=== PATIENT | female | born 1950 | race Hispanic/Latino ===

== ENCOUNTER 2019-07-13 13:43 | Emergency (ER) | payer SELFPAY ==
--- NOTE | 2019-07-13 13:54 | Emergency Department Report ---
Blank Doc - Documentation Documentation: 68-year-old female that presents with abdominal pain with n/v. This initial assessment/diagnostic orders/clinical plan/treatment(s) is/are subject to change based on patient's health status, clinical progression and re- assessment by fellow clinical providers in the ED. Further treatment and workup at subsequent clinical providers discretion. Patient/guardians urged not to elope from the ED as their condition may be serious if not clinically assessed and managed. Initial orders include: 1- Patient sent to [facility] for further evaluation and treatment 2- labs 3- UA
[2019-07-13 15:25] LABS: Bilirubin,Urine NEG (Negative); Blood,Urine NEG (Negative); Color,Urine Yellow (Yellow); Mucus,Urine FEW /HPF; Protein,Urine <15 mg/dL mg/dL (Negative); Urobilinogen,Urine < 2.0 mg/dL (<2.0)
[2019-07-13 16:27] LABS: Alanine Aminotransferase 8 units/L (7-56); BUN/Creatinine Ratio 18; Blood Urea Nitrogen 14 mg/dL (7-17); Calcium 8.9 mg/dL (8.4-10.2); Hemolysis Index 15
[2019-07-13 16:37] LABS: Basophils % (Auto) 0.4 % (0.0-1.8); Eosinophils # (Auto) 0.1 K/mm3 (0.0-0.4); Eosinophils % (Auto) 1.8 % (0.0-4.3); Hematocrit 39.5 % (30.3-42.9); Hemoglobin 13.3 gm/dl (10.1-14.3); Lymphocytes # (Auto) 2.3 K/mm3 (1.2-5.4); Lymphocytes % (Auto) 34.4 % (13.4-35.0); Mean Corpuscular HGB Conc 34 % (30-34); Mean Corpuscular Volume 100 fl (79-97); Monocytes # (Auto) 0.7 K/mm3 (0.0-0.8); Platelet Count 281 K/mm3 (140-440); Red Blood Count 3.93 M/mm3 (3.65-5.03); Red Cell Distribution Width 19.5 % (13.2-15.2)
[2019-07-13 18:56] VITALS: BP 180/79
[2019-07-13] MEDS ORDERED: SODIUM CHLORIDE 0.9% 1000 ML 1,000 ML IV ONE (19:49)
--- NOTE | 2019-07-13 19:49 | Emergency Department Report ---
ED Abdominal Pain HPI - General Chief Complaint: Abdominal Pain Stated Complaint: BACK , ADB PAIN, N/V Time Seen by Provider: 07/13/19 13:53 Source: patient, EMS Mode of arrival: Stretcher Limitations: No Limitations - History of Present Illness Initial Comments: 68-year-old female presents to the emergency room for abdominal pain and back pain. Patient states that it started in her abdomen and now is in her back. Patient admits to nausea vomiting and diarrhea. Patient states that the back pain is been going on for at least a week. Patient reports she has been taking Tylenol. Patient is a smoker. Patient denies any injury to her back. She has a past medical history of hypertension neck surgery. She reported to me that she has an allergy to penicillin and codeine. Patient denies any dysuria no vaginal discharge no vaginal bleeding. MD Complaint: abdominal pain, other (back) Onset/Timin -: week(s) Location: periumbilical, epigastric Radiation: back Severity scale (0 -10): 8 Quality: sharp Consistency: constant Improves With: nothing Worsens With: nothing Associated Symptoms: nausea, vomiting, diarrhea. denies: constipation, dysuria, melena ED Review of Systems ROS: Stated complaint: BACK , ADB PAIN, N/V Other details as noted in HPI Comment: All other systems reviewed and negative ED Past Medical Hx - Past Medical History Previous Medical History?: Yes Hx Hypertension: Yes - Surgical History Past Surgical History?: Yes Additional Surgical History: Neck surgery - Social History Smoking Status: Current Every Day Smoker Substance Use Type: None ED Physical Exam - General Limitations: No Limitations General appearance: alert, in distress - Head Head exam: Present: atraumatic, normocephalic - Eye Eye exam: Present: normal appearance - ENT ENT exam: Present: mucous membranes dry - Neck Neck exam: Present: normal inspection - Respiratory Respiratory exam: Present: normal lung sounds bilaterally. Absent: respiratory distress - Cardiovascular Cardiovascular Exam: Present: regular rate, normal rhythm. Absent: systolic mur mur, diastolic murmur, rubs, gallop - GI/Abdominal GI/Abdominal exam: Present: soft, tenderness, guarding, normal bowel sounds. Absent: distended - Extremities Exam Extremities exam: Present: normal inspection - Back Exam Back exam: Present: full ROM, vertebral tenderness - Neurological Exam Neurological exam: Present: alert, oriented X3 - Psychiatric Psychiatric exam: Present: normal affect, agitated - Skin Skin exam: Present: warm, dry, intact, normal color. Absent: rash ED Course Vital Signs 07/13/19 07/13/19 13:53 18:56 Temperature 98.5 F Pulse Rate 73 68 Respiratory 24 18 Rate Blood Pressure 192/107 Blood Pressure 180/79 [Right] O2 Sat by Pulse 100 94 Oximetry ED Medical Decision Making - Lab Data Result diagrams: 07/13/19 15:38 07/13/19 15:38 Laboratory Tests 07/13/19 07/13/19 07/13/19 15:13 15:38 15:38 WBC 6.8 RBC 3.93 Hgb 13.3 Hct 39.5 MCV 100 H MCH 34 H MCHC 34 RDW 19.5 H Plt Count 281 Lymph % (Auto) 34.4 Kinney % (Auto) 10.0 H Eos % (Auto) 1.8 Baso % (Auto) 0.4 Lymph # 2.3 Kinney # 0.7 Eos # 0.1 Baso # 0.0 Seg Neutrophils % 53.4 Seg Neutrophils # 3.6 Sodium 140 Potassium 3.5 L Chloride 106.9 Carbon Dioxide 18 L Anion Gap 19 BUN 14 Creatinine 0.8 Estimated GFR > 60 BUN/Creatinine Ratio 18 Glucose 104 H Calcium 8.9 Total Bilirubin 0.40 AST 14 ALT 8 Alkaline Phosphatase 125 Total Protein 6.7 Albumin 4.0 Albumin/Globulin Ratio 1.5 Lipase 5 L Urine Color Yellow Urine Turbidity Clear Urine pH 6.0 Ur Specific [place] 1.024 Urine Protein <15 mg/dl Urine Glucose (UA) Neg Urine Ketones Neg Urine Blood Neg Urine Nitrite Neg Urine Bilirubin Neg Urine Urobilinogen < 2.0 Ur Leukocyte Esterase Tr Urine WBC (Auto) 1.0 Urine RBC (Auto) 6.0 U Epithel Cells (Auto) 3.0 Urine Mucus Few - Radiology Data Radiology results: report reviewed Patient: NORIS SCHREIBER MR#: [id number] : 1950 Acct:[id number] Age/Sex: 68 / F ADM Date: 07/13/19 Loc: ED Attending Dr: Ordering Physician: MARTI MERLOS Date of Service: 07/13/19 Procedure(s): XR spine lumbosacral 2-3V Accession Number(s): [id number] cc: MARTI MERLOS Fluoro Time In Minutes: LUMBAR SPINE 3 VIEWS INDICATION / CLINICAL INFORMATION: low back pain. COMPARISON: CT abdomen pelvis 06/04/2019 FINDINGS: VERTEBRAE: Old compression fracture of superior endplate L2 with 25% loss of vertebral body height Mild scoliosis of lumbar spine with convexity towards right centered at L2-3. DISC SPACES:Moderate multilevel discogenic degenerative disease L2-S1. FACET JOINTS:Mild/moderate facet degenerative disease L3-S1. ADDITIONAL FINDINGS: None. IMPRESSION: 1. Old L2 compression fracture. 2. Moderately advanced degenerative changes of lumbar spine Signer Name: Malcom Patel MD Signed: 07/13/2019 9:17 PM Workstation Name: [id number] Transcribed By: TL Dictated By: Malcom Patel MD Electronically Authenticated By: Malcom Patel MD Signed Date/Time: 07/13/192116 DD/ 15 TD/TT: - Medical Decision Making 68-year-old female presents to the emergency room for abdominal pain and back pain. Patient states that it started in her abdomen and now is in her back. Patient admits to nausea vomiting and diarrhea. Patient states that the back pain is been going on for at least a week. Patient reports she has been taking Tylenol. Patient is a smoker. Patient denies any injury to her back. She has a past medical history of hypertension neck surgery. She reported to me that she has an allergy to penicillin and codeine. Patient denies any dysuria no vaginal discharge no vaginal bleeding. Critical care attestation.: If time is entered above; I have spent that time in minutes in the direct care of this critically ill patient, excluding procedure time. ED Disposition Condition: Stable Instructions: Abdominal Pain (ED) Referrals: PRIMARY CARE, [Primary Care Provider] - 3-5 Days
[2019-07-13] MEDS ORDERED: ACETAMINOPHEN 325 MG TAB PO ONE (19:50)
[2019-07-13] MEDS ORDERED: ONDANSETRON 4 MG/2 ML INJ IV ONE (20:02)
--- NOTE | 2019-07-13 21:21 | XRay Report ---
LUMBAR SPINE 3 VIEWS INDICATION / CLINICAL INFORMATION: low back pain. COMPARISON: CT abdomen pelvis 06/04/2019 FINDINGS: VERTEBRAE: Old compression fracture of superior endplate L2 with 25% loss of vertebral body height Mi ld scoliosis of lumbar spine with convexity towards right centered at L2-3. DISC SPACES:Moderate multilevel discogenic degenerative disease L2-S1. FACET JOINTS:Mild/moderate facet degenerative disease L3-S1. ADDITIONAL FINDINGS: None. IMPRESSION: 1. Old L2 compression fracture. 2. Moderately advanced degenerative changes of lumbar spine Signer Name: Malcom Patel MD Signed: 07/13/2019 9:17 PM Workstation Name: [id number]
--- NOTE | 2019-07-13 22:06 | Cat Scan Report ---
CT ABDOMEN AND PELVIS WITH CONTRAST INDICATION: Pt complains of mid-lower back pain with diarrhea x 1 week. TECHNIQUE: Axial CT images were obtained through the abdomen and pelvis after 100 cc Omnipaque [address] scans at this location are performed using CT dose reduction for ALARA by means of automated exposure control. COMPARISON: CT abdomen pelvis 06/04/2019 FINDINGS: LOWER CHEST: 2.4 cm focal parenchymal opacity right lower lobe, unchanged. Left lung base is clear. LIVER: No significant abnormality. GALLBLADDER: Surgically absent BILE DUCTS: No significant abnormality. PANCREAS: No significant abnormality. SPLEEN: No significant abnormality. ADRENALS: No significant abnormality. RIGHT KIDNEY and URETER: No significant abnormality. LEFT KIDNEY and URETER: No significant abnormality. STOMACH and SMALL BOWEL: No significant abnormality. Duodenal diverticulum again noted COLON: No significant abnormality. APPENDIX: No significant abnormality. PERITONEUM: No free fluid. No free air. No fluid collection. LYMPH NODES: No significant adenopathy. AORTA and ARTERIES: No significant abnormality. IVC and VEINS: No significant abnormality. URINARY BLADDER: No significant abnormality. REPRODUCTIVE ORGANS: No significant abnormality. ADDITIONAL FINDINGS: None. SKELETAL SYSTEM: Chronic L2 compression fracture and moderate degenerative changes of lumbar spine. P osttraumatic deformity left iliac crest, unchanged IMPRESSION: 1. No acute inflammatory process or bowel obstruction. 2. 2.4 cm nodular right lower lobe parenchymal density, unchanged Signer Name: Malcom Patel MD Signed: 07/13/2019 10:02 PM Workstation Name: [id number]
[2019-07-13] MEDS ORDERED: KETOROLAC 30 MG/1 ML INJ IV ONE (22:51)
== END 2019-07-13 23:22 | disposition left against medical advice (07) ==
LOC: EDSEX → ED 13:43
DX: M54.9 Dorsalgia, unspecified (principal); R10.9 Unspecified abdominal pain; I10 Essential (primary) hypertension; F17.200 Nicotine dependence, unspecified, uncomplicated; Z98.890 Other specified postprocedural states; Z88.0 Allergy status to penicillin; Z88.6 Allergy status to analgesic agent
CPT/HCPCS: 36415; 72100; 74177; 80053; 81001; 83690; 85025; 96361; 96374; 96375; 99285; J1885; J2405; J7030; Q9967

== ENCOUNTER 2019-12-01 12:20 | Emergency (ER) | payer BC ==
--- NOTE | 2019-12-01 12:29 | Event Note ---
ED Screening Note ED Screening Note: poor informant moaning in pain co abd pain This initial assessment/diagnostic orders/clinical plan/treatment(s) is/are subject to change based on patients health status, clinical progression and re- assessment by fellow clinical providers in the ED. Further treatment and workup at subsequent clinical providers discretion. Patient/guardian urged not to elope from the ED as their condition may be serious if not clinically assessed and managed. Initial orders include: labs ua
[2019-12-01] MEDS ORDERED: ONDANSETRON 4 MG ODT TAB PO STA (14:25)
[2019-12-01] MEDS ORDERED: HYOSCYAMINE SUBL 0.125 MG TAB SL ONE (14:25)
[2019-12-01 14:33] LABS: Basophils % (Auto) 0.6 % (0.0-1.8); Eosinophils # (Auto) 0.1 K/mm3 (0.0-0.4); Eosinophils % (Auto) 0.9 % (0.0-4.3); Hematocrit 42.3 % (30.3-42.9); Hemoglobin 14.3 gm/dl (10.1-14.3); Lymphocytes # (Auto) 2.1 K/mm3 (1.2-5.4); Lymphocytes % (Auto) 29.6 % (13.4-35.0); Mean Corpuscular HGB Conc 34 % (30-34); Mean Corpuscular Volume 99 fl (79-97); Monocytes # (Auto) 0.6 K/mm3 (0.0-0.8); Monocytes % (Auto) 8.8 % (0.0-7.3); Platelet Count 250 K/mm3 (140-440); Red Cell Distribution Width 15.1 % (13.2-15.2)
--- NOTE | 2019-12-01 14:34 | Emergency Department Report ---
ED Abdominal Pain HPI - General Chief Complaint: Abdominal Pain Stated Complaint: ABD PAIN Time Seen by Provider: 12/01/19 12:29 Source: patient, EMS Mode of arrival: Wheelchair Limitations: No Limitations - History of Present Illness Initial Comments: 69-year-old female smoker with past medical history of hypertension as well as a recent urinary tract infection for which she is taking Macrobid presents emergency department complaining of a 1 month or more history of frequent recurrent abdomen abdominal pain to the epigastric region but she has been seen at emergency department x2 and advised to see gastroenterology but has yet to do so. States that she has had appendectomy and cholecystectomy and hysterectomy several years ago but having sharp stabbing pain to the epigastric region that radiates throughout the abdomen associated with nausea that her home Zofran has not resolving. Reports no fever, chills, sweats no hematemesis no hematochezia no hematuria. She phoned EMS and was transported to the hospital denies any illicit drug use Location: epigastric Radiation: none Migration to: no migration Quality: stabbing Consistency: intermittent Improves With: nothing Worsens With: nothing Associated Symptoms: nausea. denies: constipation, dysuria, hematuria, anorexia, syncope - Related Data Allergies Allergy/AdvReac Type Severity Reaction Status Date / Time codeine Allergy Unknown Unknown Verified 12/01/19 12:51 Penicillins Allergy Unknown Unknown Verified 12/01/19 12:51 ED Review of Systems ROS: Stated complaint: ABD PAIN Other details as noted in HPI Comment: All other systems reviewed and negative ED Past Medical Hx - Past Medical History Previous Medical History?: Yes Hx Hypertension: Yes - Surgical History Past Surgical History?: Yes Additional Surgical History: Neck surgery - Social History Smoking Status: Current Every Day Smoker Substance Use Type: None ED Physical Exam - General Limitations: No Limitations General appearance: alert, in no apparent distress - Head Head exam: Present: atraumatic, normocephalic - Eye Eye exam: Present: normal appearance, PERRL, EOMI Pupils: Present: normal accommodation - ENT ENT exam: Present: normal exam, normal orophraynx, mucous membranes moist, TM's normal bilaterally - Neck Neck exam: Present: normal inspection, full ROM. Absent: tenderness, meningismu s, lymphadenopathy - Respiratory Respiratory exam: Present: normal lung sounds bilaterally. Absent: respiratory distress, wheezes, rales, chest wall tenderness, accessory muscle use, decreased breath sounds - Cardiovascular Cardiovascular Exam: Present: regular rate, normal rhythm, normal heart sounds. Absent: bradycardia, tachycardia, systolic murmur, diastolic murmur, rubs, gallop - GI/Abdominal GI/Abdominal exam: Present: soft, tenderness, normal bowel sounds, other (No Rov sing, no Erickson Bueno no Harper sign there is tenderness to the epigastric region with palpation.). Absent: distended, guarding, rebound, hyperactive bowel sounds, hypoactive bowel sounds, organomegaly, mass, bruit, pulsatile mass - Extremities Exam Extremities exam: Present: normal inspection - Back Exam Back exam: Present: normal inspection - Neurological Exam Neurological exam: Present: alert, oriented X3 - Psychiatric Psychiatric exam: Present: normal affect, normal mood - Skin Skin exam: Present: warm, dry, intact, normal color. Absent: rash ED Course Vital Signs 12/01/19 12/01/19 12:51 17:11 Temperature 97.8 F 98.2 F Pulse Rate 78 71 Respiratory 20 16 Rate Blood Pressure 153/88 148/100 O2 Sat by Pulse 97 99 Oximetry ED Medical Decision Making - Lab Data Result diagrams: 12/01/19 13:52 12/01/19 13:52 - Medical Decision Making This patient presents with abdominal pain of unclear etiology. A CT scan was ordered but not performed to evaluate for potential causes of the abdominal pain due to her eloping. The clinical exam or laboratory findings identified an emergent etiology for the abdominal pain. Specifically, given the exam, the laboratory studies I have a low suspicion for appendicitis as she has had a history of an appendectom. Also have a low suspicion for, ischemic bowel, bowel perforation, or any other life threatening disease. I discussed with Pancho Vega during our second follow-up interaction evaluating the pain dedication the level of uncertainty without a CT scan of which she initially had agreed to have done but later was found to have eloped near states she eloped after receiving pain medication and did not appear to be in distress while leaving. Critical care attestation.: If time is entered above; I have spent that time in minutes in the direct care of this critically ill patient, excluding procedure time. ED Disposition Clinical Impression: Abdominal pain Disposition: Z-07 ELOPED Is pt being admited?: No Does the pt Need Aspirin: No Condition: Undetermined Instructions: Abdominal Pain (ED) Referrals: PRIMARY CARE, [Primary Care Provider] - 3-5 Days
[2019-12-01 14:43] LABS: Alanine Aminotransferase 12 units/L (7-56); Albumin 4.1 g/dL (3.9-5); BUN/Creatinine Ratio 18; Blood Urea Nitrogen 14 mg/dL (7-17); Calcium 9.2 mg/dL (8.4-10.2); Hemolysis Index 10
[2019-12-01 16:10] LABS: Bilirubin,Urine NEG (Negative); Blood,Urine NEG (Negative); Color,Urine Yellow (Yellow); Mucus,Urine FEW /HPF; Protein,Urine <15 mg/dL mg/dL (Negative)
[2019-12-01] MEDS ORDERED: KETOROLAC 30 MG/1 ML INJ ONE (16:36)
[2019-12-01] MEDS ORDERED: KETOROLAC 30 MG/1 ML INJ IM ONE (16:39)
[2019-12-01 17:16] VITALS: BP 148/100
== END 2019-12-01 17:53 | disposition left against medical advice (07) ==
LOC: ED 12:20
DX: R10.13 Epigastric pain (principal); R11.0 Nausea; I10 Essential (primary) hypertension; F17.200 Nicotine dependence, unspecified, uncomplicated; Z98.890 Other specified postprocedural states; Z88.0 Allergy status to penicillin; Z88.8 Allergy status to other drugs, medicaments and biological substances
CPT/HCPCS: 36415; 80053; 81001; 83690; 85025; 96372; 99284; J1885; Q0162